=== PATIENT | male | born 1985 | race Caucasian/White ===

== ENCOUNTER 2016-12-01 08:26 | Emergency (ER) | payer OTHER ==
[~2016-12-01] VITALS: Ht 195.6 cm; Wt 100.0 kg
[~2016-12-01 08:26] MED LIST: CLIN-78 PO; HYDR-4003 PO
[2016-12-01 08:28] VITALS: BP 160/89; PULSE 66; RESP 16; O2SAT 99
--- NOTE | 2016-12-01 08:36 | ED.REPORT ---
HPI-Neck Pain Free Text HPI Notes Dec 01, 2016 ED Provider: Pio Butler MD Patient is a 31 year old male who reports to the ED complaining of L neck pain that began 6 hours ago. Pain was so severe it woke the patient up from sleep. He took ibuprofen, but it was not sufficient in relieving symptoms. 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 Pt denies numbness or loss of function. Nursing Notes Stated Complaint: NECK PAIN Chief Complaint: Head, Face, Neck Trauma Nursing Notes Reviewed: Yes Allergies: Coded Allergies: No Known Allergies (Verified Allergy, Unknown, 11/17/15) Scheduled Clindamycin (Clindamycin) 300 Mg Capsule 300 MG PO QID Scheduled PRN Cyclobenzaprine (Cyclobenzaprine) 5 Mg Tablet 5 MG PO TID PRN PRN Spasm Hydrocodone-Acetaminophen 5-325 mg (Hydrocodone-Acetaminophen 5-325 mg) 1 Each Tablet 1 TABLET PO Q4H PRN PRN For Pain Naproxen (Naproxen) 500 Mg Tab 500 MG PO BID PRN PRN For Pain General Time Seen by Provider: 08:56 Chief Complaint Neck pain Hx Obtained From: Patient Arrived By: Walk-in Sudden in Onset?: Yes Onset Occurred: 5 - 8 hours ago Symptom Duration: Since onset Location: : Anterior neck Radiation: : Does not radiate Severity: Current: Mild Severity: Maximum: Mild Past Medical History Past Medical History Normally healthy Past Surgical History Arm fracture Smoking History Current Every Day Smoker Social History Alcohol Use: 1-3 per week Drug Use: Denies drug use Other Social History: , Local resident Occupation work in [employer]. Ambulatory Status Independent Review of Systems Basic Review of Systems Allergy / Immune: No allergy Psychiatric: Normal thought content Constitutional: Denies: Fever Respiratory: Denies: Shortness of breath Cardiovascular: Denies: Chest pain Musculoskeletal: Reports: Neck pain Neurologic: Denies: Numbness, Weakness Complete sys rev & neg: except as marked. Physical Exam Initial Vital Signs Vital Signs (First) Date Time Temp Pulse Resp B/P Pulse Ox O2 Delivery O2 Flow Rate FiO2 12/01/16 08:28 36.1 66 16 160/89 99 Room Air Initial VS: Reviewed Head / Eyes: Atraumatic, Normocephalic, PERRL ENT: Mucous membranes moist, Conjunctiva normal, No scleral icterus Respiratory: Breath sounds normal, Clear to auscultation, No respiratory distress Cardiovascular: Regular rate & rhythm, Heart sounds normal, Intact distal pulses Abdomen / GI: Soft, Non-tender, No guarding, No rebound, No distention Lymphatic: No lymphadenopathy Extremities: Vascular intact, Neuro intact Psychiatric: Mood/affect normal, Behavior normal, Normal thought content General/Constitutional: Awake, Alert Neck: No masses, No crepitus tenderness along distribution of upper left trapezius no bony midline tenderness Neurologic: Oriented X3, Speech NL motor and sensory function normal Skin: No rash, Warm, Dry Procedures Procedure Notes: OMT/Left shoulder scapular release Treatment exam showed heart changes along the trapezius and rhomboid and paraspinal muscles of the left upper thoracic area in terms of asymmetry and fullness and tenderness to palpation. Scapula was mobilized gently in standard fashion for scapular release. Posttreatment exam shows decreased tenderness, fullness and more symmetry. Re-Eval/Medical Decision Med Decision/Clinical Course Seems musculoskeletal in nature without obvious high-risk features. Patient will be discharged with strict return and follow-up precautions. Naproxen and cyclobenzaprine prescription given Re-Evaluation/Progress : Time of Eval: 09:17 Re-Evaluation/Progress Note: Pt rechecked. Informed pt of diagnosis and plan for treatment. Pt understands and agrees with plan. F/U and RTER warnings given. All questions addressed. Counseled Regarding: Diagnosis, Lab results, Need for follow-up, When/why to return to ED Discharge & Departure Primary Impression: Trapezius strain Encounter type: initial encounter Laterality: left Qualified Code: S46.812A - Strain of other muscles, fascia and tendons at shoulder and upper arm level, left arm, initial encounter Disposition: Home Discharge Condition All VS Reviewed: Yes Condition: Stable Additional Instructions: Thank you for seeking care at emergency room.I believe you have strained your trapezius muscle of your left shoulder. Use naproxen, cyclobenzaprine, ice, heat, gentle stretching to treat your symptoms. Avoid heavy lifting. Return to the ER if you develop numbness or weakness down your left arm, high fever, obvious rash of the skin in that area, or other concerns Referrals: NOPCP (PCP) ED Scribe Statement Portion of this note were transcribed by Kathrin Lemus and Susan Acosta. I, Dr. O'Barbi personally performed the history, physcial exam, and medical decision- making: I reviewed and confirmed the accuracy for the information in the transcribed note. Signed by: asaf Duncan, 11/24/16 0930 Wes Butler DO Dec 01, 2016 08:36 SUSAN ACOSTA Dec 01, 2016 08:59 Kathrin Lemus Dec 01, 2016 09:43
[2016-12-01] MEDS ORDERED: CYCL5TAB PO (09:23)
[2016-12-01] MEDS ORDERED: NPR500T PO (09:23)
== END 2016-12-01 10:09 | disposition home or self-care (01) ==
LOC: SED 08:26
DX: S46.812A Strain of other muscles, fascia and tendons at shoulder and upper arm level, left arm, initial encounter (principal); X58.XXXA Exposure to other specified factors, initial encounter; Y93.89 Activity, other specified; Y99.0 Civilian activity done for income or pay; Y92.69 Other specified industrial and construction area as the place of occurrence of the external cause; F17.200 Nicotine dependence, unspecified, uncomplicated